=== PATIENT | male | born 1965 | race African-American/Black ===

== ENCOUNTER → 2019-09-20 | Outpatient (CLI) | payer OTHER | LOC: SJCVCIMAG 14:24 | DX: I70.202 Unspecified atherosclerosis of native arteries of extremities, left leg (principal); Z89.512 Acquired absence of left leg below knee ==

== ENCOUNTER → 2019-09-20 | Outpatient (CLI) | payer OTHER | LOC: HYPER 13:44 | DX: T87.81 Dehiscence of amputation stump (principal); E11.622 Type 2 diabetes mellitus with other skin ulcer; L97.822 Non-pressure chronic ulcer of other part of left lower leg with fat layer exposed; I10 Essential (primary) hypertension; L84 Corns and callosities; R26.9 Unspecified abnormalities of gait and mobility; Z79.4 Long term (current) use of insulin; Z79.82 Long term (current) use of aspirin; Z86.718 Personal history of other venous thrombosis and embolism; Z89.611 Acquired absence of right leg above knee; Y83.5 Amputation of limb(s) as the cause of abnormal reaction of the patient, or of later complication, without mention of misadventure at the time of the procedure ==

== ENCOUNTER → 2019-09-28 | Outpatient (CLI) | payer OTHER | LOC: HYPER 09:56 | DX: T87.81 Dehiscence of amputation stump (principal); E11.622 Type 2 diabetes mellitus with other skin ulcer; L97.822 Non-pressure chronic ulcer of other part of left lower leg with fat layer exposed; E66.01 Morbid (severe) obesity due to excess calories; I10 Essential (primary) hypertension; Z86.718 Personal history of other venous thrombosis and embolism; Z89.511 Acquired absence of right leg below knee; Z79.82 Long term (current) use of aspirin; Z79.4 Long term (current) use of insulin; Z68.30 Body mass index [BMI] 30.0-30.9, adult; Y83.5 Amputation of limb(s) as the cause of abnormal reaction of the patient, or of later complication, without mention of misadventure at the time of the procedure ==